=== PATIENT | female | born 1955 | race Caucasian/White ===

== ENCOUNTER → 2017-07-26 | Outpatient (CLI) | payer OTHER ==
--- NOTE | 2017-07-27 12:05 | REPMRS ---
Patient History The patient states she has not had a clinical breast exam in over a year. Patient is postmenopausal. No known family history of cancer. Took hormonal contraceptives for 15 years. Digital Woman Screen Mammo: July 26, 2017 - Exam #: [id number] Bilateral CC and MLO view(s) were taken. Technologist: Criss Quinonez Technologist Prior study comparison: May 08, 2016, digital woman screen mammo performed at [facility]. December 12, 2013, bilateral bilat screen digital mammo, performed at [facility] FINDINGS: The breast tissue is heterogeneously dense. This may lower the sensitivity of mammography. There has been no change in the appearance of the mammogram from the prior studies. There is a moderate amount of residual fibroglandular tissue which is fairly symmetric. There is no interval development of dominant mass, areas of architectural distortion, or clustered microcalcification typical of malignancy. ASSESSMENT: BI-RADS/ACR category 1 mammogram. Negative. Recommendation Routine screening mammogram in 1 year (for women over age 40). This mammogram was interpreted with the aid of an FDA-approved computer-aided dectection system. Electronically Signed By: Chuck Caceres MD 07/27/17 [id number]
== END ==
LOC: M WHC 08:50
PROVIDERS: ATTEND Internal Medicine
DX: Z12.31 Encounter for screening mammogram for malignant neoplasm of breast (principal)

== ENCOUNTER → 2017-12-20 | Outpatient (REF) | payer OTHER ==
[2017-12-22 00:07] LABS: TISSUE TRANSGLUTAMINASE IgA <2 U/mL (0-3)
== END ==
LOC: M LAB REF 12:06
DX: R19.7 Diarrhea, unspecified (principal)

== ENCOUNTER → 2018-07-27 | Outpatient (CLI) | payer OTHER | LOC: M WHC 10:45 | DX: Z12.31 Encounter for screening mammogram for malignant neoplasm of breast (principal); N60.31 Fibrosclerosis of right breast; N60.32 Fibrosclerosis of left breast | CPT/HCPCS: 77067 ==

== ENCOUNTER 2018-09-02 06:32 | Day surgery (SDC) | payer OTHER ==
[~2018-09-02] VITALS: Ht 157.5 cm; Wt 96.6 kg
[~2018-09-02 06:32] MED LIST: ASPI1TAB PO; ATOR1TAB19; CYCL5TAB; DICY10CA13 PO; DULO1CAP2; DULO1CAP3; HYDR200T3; MULT1TAB10 PO; NS 1,000 ML IV ONE; OMEP40CA2; SING10TA32 PO; TYLE500T78 PO
[2018-09-02] MEDS ORDERED: PROPOFOL 200 MG/20 ML VIAL As Ordered ONE ×2 (07:05→07:45)
[2018-09-02] MEDS ORDERED: LIDOCAINE 2% INJ 100 MG/5 ML SDV (FOR ANES.) As Ordered ONE (07:05)
--- NOTE | 2018-09-02 07:53 | ROOR ---
Patient Name: Lashell Trevino Procedure Date: 09/02/2018 7:32 AM Date of : 1955 Age: 63 Room: [facility] Gender: Female Note Status: Finalized Procedure: Colonoscopy Indications: Generalized abdominal pain, Change in bowel habits, Constipation Providers: Jerald LOPEZ MD Referring MD: Yanelis Hutton DO Requesting Provider: Medicines: Monitored Anesthesia Care Complications: No immediate complications. Procedure: Pre-Anesthesia Assessment: - The heart rate, respiratory rate, oxygen saturations, blood pressure, adequacy of pulmonary ventilation, and response to care were monitored throughout the procedure. The Colonoscope was introduced through the anus and advanced to the terminal ileum, with identification of the appendiceal orifice and IC valve. The colonoscopy was performed without difficulty. The patient tolerated the procedure well. The quality of the bowel preparation was good. Findings: The perianal and digital rectal examinations were normal. The colon (entire examined portion) appeared normal. The terminal ileum appeared normal. Small Internal Hemorrhoids. Impression: - The entire colon is normal. - The examined portion of the ileum was normal. - Small Internal Hemorrhoids. - No specimens collected. Recommendation: - Use fiber, for example Citrucel, Fibercon, Konsyl or Metamucil. - Use Miralax 1 capful (17 grams) in 8 ounces of water PO daily. Jerald Lopez MD Jerald LOPEZ MD 09/02/2018 7:52:47 AM This report has been signed electronically. Number of Addenda: 0 Note Initiated On: 09/02/2018 7:32 AM Estimated Blood Loss: Estimated blood loss: none.
[2018-09-02 08:15] VITALS: BP 134/85
== END 2018-09-02 08:31 | disposition home or self-care (01) ==
LOC: M OPP 06:32
PROVIDERS: ATTEND Internal Medicine Gastroenterology
DX: R10.84 Generalized abdominal pain (principal); R19.4 Change in bowel habit; K64.8 Other hemorrhoids; G47.30 Sleep apnea, unspecified; F32.9 Major depressive disorder, single episode, unspecified; M06.9 Rheumatoid arthritis, unspecified; M79.7 Fibromyalgia; K58.9 Irritable bowel syndrome, unspecified; Z82.49 Family history of ischemic heart disease and other diseases of the circulatory system; Z83.3 Family history of diabetes mellitus; Z80.0 Family history of malignant neoplasm of digestive organs; Z80.1 Family history of malignant neoplasm of trachea, bronchus and lung; Z79.82 Long term (current) use of aspirin; Z79.899 Other long term (current) drug therapy; Z88.2 Allergy status to sulfonamides

== ENCOUNTER → 2019-07-26 | Outpatient (CLI) | payer OTHER ==
[~2019-07-26] MED LIST changes: -ASPI1TAB PO; +ASPI81TA26 PO; -DULO1CAP2; -DULO1CAP3; +DULO1CAP5; +DULO1CAP6; +METHACHOLINE KIT (J7674) INH ONE; -NS 1,000 ML IV ONE; -OMEP40CA2; +OMEP40CA97
--- NOTE | 2019-07-26 11:42 | PFTRPT ---
Site: [facility], [address] [place], [address] ID: [id number] Name: IRENE HAYNES Visit Date: 07/26/2019 Second ID: [id number] Referring Doctor: Yanelis Hutton DO Reviewing Doctor: Russel Angulo MD Vp Treasurer: Kinjal Larson Age: 64 : 1955 Sex: Female Race: Height: 62.00 Inches Weight: 193.00 Lbs BSA: 1.88 Order IDs: [id number] Requested Test(s): <RESP-PFT.BROCHOPROV> Diagnosis: R05 puffs of albuterol for post bronchodilator. Review Status: Not Reviewed Pre-Bronch Post-Bronch Pred Actual %Pred Actual %Chng SPIROMETRY FVC (L) 2.94 3.12 106 3.10 FEV1 (L) 2.25 2.67 118 2.70 FEV1/FVC (%) 77 86 111 87 1 FEF 25% (L/sec) 4.67 5.06 108 5.30 4 FEF 50% (L/sec) 3.51 3.57 101 3.51 -1 FEF 75% (L/sec) 1.11 1.87 168 1.88 FEF 25-75% (L/sec) 2.05 3.39 165 3.43 1 FEF Max (L/sec) 5.74 5.64 98 5.77 2 FIVC (L) 3.19 2.86 -10 FIF 50% (L/sec) 3.51 6.40 182 4.92 -23 FIF Max (L/sec) 6.42 4.99 -22 Expiratory Time (sec) 7.52 6.94 -7 Back Extrap Vol (L) 0.08 0.09 11 Time To FEFmax (sec) 0.079 0.094 19
== END ==
LOC: M CARPUL 10:21
PROVIDERS: ATTEND Internal Medicine
DX: R05 Cough (principal)
CPT/HCPCS: 94070; J7674

== ENCOUNTER → 2020-06-06 | Outpatient (CLI) | payer MEDICARE, OTHER ==
[~2020-06-06] MED LIST changes: -METHACHOLINE KIT (J7674) INH ONE
--- NOTE | 2020-06-06 14:15 | REPMRS ---
Patient History The patient states she has not had a clinical breast exam in over a year. No known family history of cancer. Took hormonal contraceptives for 15 years. 3D TOMOSYNTHESIS WAS PERFORMED. [facility] lifetime [facility] for breast cancer is 5.7%. Volpara breast density b. Digital Woman Screen Mammo: June 06, 2020 - Exam #: [id number] Bilateral CC and MLO view(s) were taken. Technologist: RT Marcos Prior study comparison: July 27, 2018, bilateral digital woman screen mammo performed at [facility]. July 26, 2017, digital woman screen mammo performed at [facility]. FINDINGS: The breast tissue is heterogeneously dense. This may lower the sensitivity of mammography. There has been no change in the appearance of the mammogram from the prior studies. There is a moderate amount of residual fibroglandular tissue which is fairly symmetric. There is no interval development of dominant mass, areas of architectural distortion, or clustered microcalcification typical of malignancy. Assessment: BI-RADS/ACR category 1 mammogram. Negative Mammogram. Recommendation Routine screening mammogram in 1 year (for women over age 40). This mammogram was interpreted with the aid of an FDA-approved computer-aided dectection system. Electronically Signed By: Chuck Caceres MD 06/06/20 [id number]
== END ==
LOC: M WHC 13:01
PROVIDERS: ATTEND Internal Medicine
DX: Z12.31 Encounter for screening mammogram for malignant neoplasm of breast (principal)

== ENCOUNTER → 2021-06-04 | Outpatient (CLI) | payer MEDICARE, OTHER ==
[~2021-06-04] MED LIST changes: +OMEP40CA4; -OMEP40CA97
--- NOTE | 2021-06-04 13:06 | REPMRS ---
Patient History The patient states she has not had a clinical breast exam in over a year. Patient is postmenopausal. No known family history of cancer. Took hormonal contraceptives for 15 years. Tomosynthesis is performed. Volpara breast density is b. [facility] 10-15 lb unintentional weight gain. Covid vaccines 10/2020 right arm, 10/2020 right arm. Booster 05/2021 right arm. Patient states no breast complaints today. Patient has signed MRS History Sheet. Digital Woman Screen Mammo: June 04, 2021 - Exam #: [id number] Bilateral CC and MLO view(s) were taken. Technologist: RT Marcos Prior study comparison: June 06, 2020, bilateral digital woman screen mammo performed at [facility]. July 27, 2018, bilateral digital woman screen mammo performed at [facility]. FINDINGS: The breast tissue is heterogeneously dense. This may lower the sensitivity of mammography. There has been no change in the appearance of the mammogram from the prior studies. There is a moderate amount of residual fibroglandular tissue which is fairly symmetric. There is no interval development of dominant mass, areas of architectural distortion, or clustered microcalcification typical of malignancy. Assessment: BI-RADS/ACR category 1 mammogram. Negative Mammogram. Recommendation Routine screening mammogram in 1 year (for women over age 40). This mammogram was interpreted with the aid of an FDA-approved computer-aided dectection system. Electronically Signed By: Chuck Caceres MD 06/04/21 [id number]
== END ==
LOC: M WHC 11:16
PROVIDERS: ATTEND Internal Medicine
DX: Z12.31 Encounter for screening mammogram for malignant neoplasm of breast (principal)

== ENCOUNTER → 2022-02-11 | Outpatient (REF) | payer MEDICARE, OTHER | LOC: M LAB REF 16:10 | PROVIDERS: ATTEND Internal Medicine | DX: M25.50 Pain in unspecified joint (principal); M79.7 Fibromyalgia ==

== ENCOUNTER → 2022-06-25 | Outpatient (CLI) | payer MEDICARE, OTHER | LOC: M WHC 10:55 | PROVIDERS: ATTEND Internal Medicine | DX: Z12.31 Encounter for screening mammogram for malignant neoplasm of breast (principal) ==

== ENCOUNTER → 2023-07-01 | Outpatient (CLI) | payer MEDICARE, OTHER ==
[~2023-07-01] MED LIST changes: +DICY-61 PO; -DICY10CA13 PO; -HYDR200T3; +HYDR200T46; +MONT-5 PO; -SING10TA32 PO
== END ==
LOC: M WHC 11:12
PROVIDERS: ATTEND Internal Medicine
DX: Z12.31 Encounter for screening mammogram for malignant neoplasm of breast (principal)

== ENCOUNTER → 2023-09-14 | Outpatient (REF) | payer MEDICARE, OTHER ==
[2023-09-14 16:56] LABS: RSV AMPLIFICATION NEGATIVE (NEGATIVE)
== END ==
LOC: M LAB REF 16:08
PROVIDERS: ATTEND Internal Medicine
DX: R09.81 Nasal congestion (principal)

== ENCOUNTER 2024-07-07 09:57 | Day surgery (SDC) | payer MEDICARE, OTHER ==
[~2024-07-07] VITALS: Ht 157.5 cm; Wt 96.5 kg
[~2024-07-07 09:57] MED LIST changes: +ACET-840 PO; +ARIP1TAB4 PO; -CYCL5TAB; +CYCL5TAB4 PO; -DULO1CAP6; +DULO1CAP6 PO; +LIDOCAINE 2% 100MG/5ML SDV (FOR ANES.) As Ordered ONE; +NS 250 ML IV ONE; +PHEN30CA21 PO; +SYNT25TA PO; +THERTAB52 PO; +propofoL 200 MG/20 ML VIAL As Ordered ONE
[2024-07-07] MEDS ORDERED: fentaNYL 100 MCG/2 ML INJECTION As Ordered ONE (10:43)
[2024-07-07 11:33] VITALS: TEMP 97.3
[2024-07-07 11:55] VITALS: BP 115/68; O2SAT 97
== END 2024-07-07 12:03 | disposition home or self-care (01) ==
LOC: M OPP 09:57
PROVIDERS: ATTEND Surgery
DX: Z12.11 Encounter for screening for malignant neoplasm of colon (principal); D12.2 Benign neoplasm of ascending colon; K31.7 Polyp of stomach and duodenum; K57.30 Diverticulosis of large intestine without perforation or abscess without bleeding; K29.60 Other gastritis without bleeding; K44.9 Diaphragmatic hernia without obstruction or gangrene; K58.9 Irritable bowel syndrome, unspecified; R12 Heartburn; Z80.0 Family history of malignant neoplasm of digestive organs; M32.9 Systemic lupus erythematosus, unspecified; G47.30 Sleep apnea, unspecified; E78.00 Pure hypercholesterolemia, unspecified; M79.7 Fibromyalgia; Z79.899 Other long term (current) drug therapy; Z79.82 Long term (current) use of aspirin; Z79.890 Hormone replacement therapy; Z90.49 Acquired absence of other specified parts of digestive tract; Z88.2 Allergy status to sulfonamides
CPT/HCPCS: 43239; 45385; 88305; J3010

== ENCOUNTER → 2024-07-19 | Outpatient (CLI) | payer MEDICARE, OTHER ==
[~2024-07-19] MED LIST changes: -LIDOCAINE 2% 100MG/5ML SDV (FOR ANES.) As Ordered ONE; -NS 250 ML IV ONE; -propofoL 200 MG/20 ML VIAL As Ordered ONE
== END ==
LOC: M WHC 12:45
PROVIDERS: ATTEND Internal Medicine
DX: Z12.31 Encounter for screening mammogram for malignant neoplasm of breast (principal); M85.89 Other specified disorders of bone density and structure, multiple sites; R92.323 Mammographic fibroglandular density, bilateral breasts

== ENCOUNTER → 2024-10-12 | Outpatient (CLI) | payer MEDICARE, OTHER | LOC: M WUC 14:37 | PROVIDERS: ATTEND Internal Medicine | DX: M47.816 Spondylosis without myelopathy or radiculopathy, lumbar region (principal); M85.88 Other specified disorders of bone density and structure, other site; Z91.81 History of falling ==

== ENCOUNTER → 2025-07-25 | Outpatient (CLI) | payer MEDICARE, OTHER | LOC: M WHC 11:25 | PROVIDERS: ATTEND Internal Medicine | DX: Z12.31 Encounter for screening mammogram for malignant neoplasm of breast (principal) ==